=== PATIENT | male | born 1945 | race Caucasian/White ===

== ENCOUNTER 2017-04-24 07:02 | Day surgery (SDC) | payer MEDICARE, BC ==
[~2017-04-24 07:02] MED LIST: LIDOCAINE HCL 1% MPF SOL ONE; PROPOFOL 500 MG/50 ML EMU IV ONE
[2017-04-24 09:11] VITALS: TEMP 98
[2017-04-24 09:29] VITALS: RESP 18
[2017-04-24 09:36] VITALS: BP 150/76; PULSE 55; O2SAT 97
== END 2017-04-24 09:53 | disposition home or self-care (01) | DRG 951 ==
LOC: SURG 07:02
PROVIDERS: ATTEND Internal Medicine Gastroenterology
DX: Z12.11 Encounter for screening for malignant neoplasm of colon (principal); E11.9 Type 2 diabetes mellitus without complications; D12.8 Benign neoplasm of rectum; K57.30 Diverticulosis of large intestine without perforation or abscess without bleeding; Z86.010 Personal history of colon polyps; K64.8 Other hemorrhoids
CPT/HCPCS: J2001; J2704